=== PATIENT | male | born 1990 | race Hispanic/Latino ===

== ENCOUNTER 2017-11-04 21:37 | Emergency (ER) | payer SELFPAY ==
[2017-11-05] MEDS ORDERED: OCTYL 2-CYANOACRYLATE 1 EACH TP ONE (00:01)
== END 2017-11-05 00:53 | disposition home or self-care (01) ==
LOC: EDH 21:37
DX: S02.2XXA Fracture of nasal bones, initial encounter for closed fracture (principal); S01.21XA Laceration without foreign body of nose, initial encounter; I10 Essential (primary) hypertension; W10.8XXA Fall (on) (from) other stairs and steps, initial encounter; Y93.89 Activity, other specified; Y92.89 Other specified places as the place of occurrence of the external cause; Y99.8 Other external cause status
CPT/HCPCS: 12011; 70450; 70486; 72040

== ENCOUNTER 2019-01-13 21:24 | Inpatient (IN) | payer OTHER ==
[~2019-01-13] VITALS: Ht 177.8 cm; Wt 112.5 kg
[2019-01-13 21:51] LABS: APPEARANCE,URINE Clear (CLEAR); BILIRUBIN,URINE Large (NEGATIVE); COLOR,URINE Dark Yellow (YELLOW); GLUCOSE, URINE (UA) Negative (NEGATIVE); KETONES,URINE Negative (NEGATIVE); LEUKOCYTE ESTERASE ,URINE Trace (NEGATIVE); NITRATE,URINE Negative (NEGATIVE); OCCULT BLOOD,URINE Negative (NEGATIVE); PH,URINE 6.5 (5.0-8.0); PROTEIN,URINE Negative (NEGATIVE)
[2019-01-13 21:58] LABS: AMPHET/METH SCREEN,URINE NEGATIVE (NEGATIVE); BARBITURATE SCREEN, URINE NEGATIVE (NEGATIVE); BENZODIAZEPINES SCREEN,URINE NEGATIVE (NEGATIVE); CANNABINOID SCREEN,URINE NEGATIVE (NEGATIVE); COCAINE SCREEN,URINE NEGATIVE (NEGATIVE); OPIATE SCREEN,URINE NEGATIVE (NEGATIVE); PHENCYCLIDINE SCREEN,URINE NEGATIVE (NEGATIVE)
[2019-01-13 22:02] LABS: BASOPHILS % (AUTO) 1.5 % (0.0-5.0); HEMATOCRIT 36.3 % (42-54); LYMPHOCYTES % (AUTO) 33.1 % (21.0-51.0); MEAN CORPUSCULAR HGB CONC 35.6 g/dL (32.0-36.0); MEAN CORPUSCULAR VOLUME 98.5 fL (79-99); MONOCYTES % (AUTO) 8.7 % (3.0-13.0); NEUTROPHILS % (AUTO) 55.7 % (40.0-77.0); NUCLEATED RED BLOOD CELLS 0.1 % (0.0-0.19); PLATELET COUNT (AUTO) 308 K/uL (130-400); RED BLOOD CELL COUNT(AUTO) 3.69 MIL/uL (4.50-6.20); RED CELL DISTRIBUTION WIDTH 16.5 % (11.0-15.5); WHITE BLOOD COUNT (AUTO) 9.7 K/uL (4.8-10.8)
[2019-01-13 22:02] LABS: BACTERIA,URINE Few /HPF (None Seen); COARSE GRANULAR CASTS,URINE 0-2 /LPF (None Seen); HYALINE CASTS, URINE 0-1 /LPF (0-1 /LPF); MUCUS,URINE Few LPF (None Seen)
[2019-01-13 22:03] LABS: RBC,URINE 0-1 /HPF (0-1)
[2019-01-13 22:04] LABS: OTHER CASTS, URINE WBC CASTS 1+ /LPF (None Seen)
[2019-01-13 22:16] LABS: CARBON DIOXIDE 29 mmol/L (21-32); CHLORIDE 100 mmol/L (101-111); CREATININE 0.6 mg/dL (0.5-1.5); GLOMERULAR FILTR. RATE CALC 169 mL/min (>60); GLUCOSE,RANDOM 154 mg/dL (70-105); POTASSIUM 3.4 mmol/L (3.5-5.1); SODIUM SERUM 136 mmol/L (136-145); UREA NITROGEN, BLOOD 4 mg/dL (7-18)
[2019-01-13 22:21] LABS: INR 1.1 (0.85-1.15); PARTIAL THROMBOPLASTIN TIME 28.9 SEC (26.3-35.5); PROTHROMBIN TIME 11.5 SEC (9.6-11.6)
[2019-01-13 22:29] LABS: ALANINE AMINOTRANSFERASE 99 U/L (12-78); ALBUMIN 2.9 g/dL (3.5-5.0); ASPARTATE AMINOTRANSFERASE 170 U/L (10-37); LIPASE 267 U/L (114-286); TOTAL PROTEIN, SERUM 7.2 g/dL (6.0-8.3)
[2019-01-13 22:35] LABS: BILIRUBIN,DIRECT 13.6 mg/dL (0.0-0.3); BILIRUBIN,TOTAL 16.8 mg/dL (0.2-1.0)
[2019-01-13 22:37] LABS: ALCOHOL, BLOOD < 3 mg/dL (0-10)
[2019-01-13] MEDS ORDERED: ONDANSETRON HCL 4 MG/2 ML VIAL IV PRN (23:15)
[2019-01-13] MEDS ORDERED: DIAZEPAM 5 MG TABLET PO PRN (23:15)
[2019-01-13] MEDS ORDERED: ACETAMINOPHEN 325 MG TAB PO PRN ×2 (23:15)
[2019-01-14 00:02] VITALS: BP 159/100
--- NOTE | 2019-01-14 00:30 | NUR ---
ADMISSION ASSESSMENT: Received pt from ER via wheelchair. Pt alert and oriented x 4, c/o of mild headache. Pt is jaundice. Pt and mother oriented to bed controls and room. Patent IV to right ac with NS infusing. Educated pt on alcohol cessation and liver cirrhosis. Will continue to monitor
[2019-01-14 03:58] VITALS: BP 131/71
[2019-01-14 08:00] VITALS: BP_SYST 142; BP_SYST 99; BP_DIAS 55; BP_DIAS 80
[2019-01-14] MEDS ORDERED: ENOXAPARIN SODIUM 30 MG/0.3 ML SQ SCH (09:00)
[2019-01-14] MEDS: THIAMINE HCL 100 MG TABLET PO SCH (09:50)
[2019-01-14] MEDS: FAMOTIDINE/PF 20 MG/2 ML VIAL IV SCH ×2 (09:51→20:55)
[2019-01-14] MEDS: SODIUM CHLORIDE 0.9% 1000ML 1,000 ML IV SCH ×2 (09:52→21:07)
--- NOTE | 2019-01-14 10:00 | NUR ---
DR. BEE AWARE OF CONSULT, ORDERS ENTERED. STATES MUCOMYST IS FOR PREVENTATIVE MEASURE FOR LIVER FAILURE. ASKED IF OKAY TO STOP LOVENOX SINCE PATIENT REPORTED LIGHT BLOOD IN STOOLS STATES OKAY TO STOP LOVENOX.
[2019-01-14 11:57] VITALS: BP 139/80
--- NOTE | 2019-01-14 12:11 | NUR ---
DCP CM met with pt discussed dc plans. Pt is independent lives at home with mother. Denies any equipments/services. Pt feels safe to go back home, still drives, mother able to assist with transportation and needs. Pt currently does not follow a pcp, self pay, given [facility], [facility] assisting. DC plan to home once stable. CM to cont to follow up. Addendum: 01/14/19 at 1212 by TATY CANDELARIO LVN CM Amended: Links added.
[2019-01-14] MEDS ORDERED: PHARMACY COMMUNICATION MISC SCH (12:15)
[2019-01-14] MEDS: LACTULOSE 20 GM/30 ML UDCUP PO SCH ×2 (14:46→20:55)
[2019-01-14 16:00] VITALS: BP 156/93
--- NOTE | 2019-01-14 16:00 | NUR ---
ASKED DR. LOMAS IF WANTS TO START PT ON WITHDRAWAL PROTOCOL STATES NO NEEDS SINCE PATIENT IS NOT SHOWING ANY SIGNS NOR SYMPTOMS.
[2019-01-14 20:10] VITALS: BP 149/83
[2019-01-14] MEDS ORDERED: WATER IV SCH ×8 (21:00→22:00)
[2019-01-14] MEDS ORDERED: DEXTROSE 5% IV SCH ×8 (21:00→22:00)
[2019-01-14] MEDS ORDERED: ACETYLCYSTEINE IV SCH ×8 (21:00→22:00)
[2019-01-15] VITALS (7 sets, daily range): BP systolic 124–153; BP diastolic 74–99
--- NOTE | 2019-01-15 00:25 | NUR ---
NOTE PATIENT REPORTS HE HAD AN EPISODE OF NAUSEA AND FEELING DIZZY EARLIER, BUT NOW NAUSEA IS RELIEVED AND NO DIZZINESS.
[2019-01-15] MEDS ORDERED: WATER IV SCH (02:00)
[2019-01-15] MEDS ORDERED: DEXTROSE 5% IV SCH (02:00)
[2019-01-15] MEDS ORDERED: ACETYLCYSTEINE IV SCH (02:00)
[2019-01-15] MEDS: LACTULOSE 20 GM/30 ML UDCUP PO SCH ×3 (03:25→21:25)
[2019-01-15] MEDS: SODIUM CHLORIDE 0.9% 1000ML 1,000 ML IV SCH ×2 (03:25→15:10)
--- NOTE | 2019-01-15 03:44 | NUR ---
NOTE PATIENT REPORTS HE HAS NOT HAD ANY MORE NAUSEA EPISODES. DOES SAY THAT HE HAS BEEN HAVING SOME ITCHING SINCE 2 DAYS PRIOR AND IT HAS BECOME MORE FREQUENT THAT HE HAS TO SCRATCH ALL OVER BODY. CONTACTED Jhon WILHELM TO NOTIFY AND OBTAINED ORDER FOR BENADRYL PRN.
[2019-01-15 04:30] LABS: MEAN CORPUSCULAR HGB CONC 34.3 g/dL (32.0-36.0); RED CELL DISTRIBUTION WIDTH 16.9 % (11.0-15.5)
[2019-01-15 04:49] LABS: ALBUMIN 2.5 g/dL (3.5-5.0); CREATININE 0.7 mg/dL (0.5-1.5); POTASSIUM 3.6 mmol/L (3.5-5.1)
[2019-01-15 04:57] LABS: BASOPHILS % (AUTO) 1.3 % (0.0-5.0); EOSINOPHILS % (AUTO) 1.8 % (0.0-8.0); HEMATOCRIT 38.2 % (42-54); LYMPHOCYTES % (AUTO) 6.8 % (21.0-51.0); MEAN CORPUSCULAR HEMOGLOBIN 33.7 pg (27.0-33.0); MEAN CORPUSCULAR VOLUME 98.2 fL (79-99); NEUTROPHILS % (AUTO) 75.1 % (40.0-77.0); PLATELET COUNT (AUTO) 373 K/uL (130-400); RED BLOOD CELL COUNT(AUTO) 3.88 MIL/uL (4.50-6.20)
[2019-01-15 05:14] LABS: BILIRUBIN,TOTAL 16.3 mg/dL (0.2-1.0)
[2019-01-15 06:01] LABS: ALBUMIN 2.5 g/dL (3.5-5.0); TOTAL PROTEIN, SERUM 7.2 g/dL (6.0-8.3)
[2019-01-15 06:03] LABS: BILIRUBIN,DIRECT 12.2 mg/dL (0.0-0.3); BILIRUBIN,TOTAL 16.3 mg/dL (0.2-1.0)
[2019-01-15] MEDS: DIPHENHYDRAMINE HCL 25 MG CAPSULE PO PRN ×2 (07:39→21:31)
[2019-01-15] MEDS ORDERED: LORAZEPAM 0.5 MG TABLET PO PRN (09:00)
[2019-01-15] MEDS: THIAMINE HCL 100 MG/ML 2ML VIAL IM SCH (09:47)
[2019-01-15] MEDS: FOLIC ACID 1 MG TABLET PO SCH (09:47)
[2019-01-15] MEDS: MULTIVITAMIN TABLET PO SCH (09:47)
[2019-01-15] MEDS: THIAMINE HCL 100 MG TABLET PO SCH (09:47)
[2019-01-15] MEDS: FAMOTIDINE/PF 20 MG/2 ML VIAL IV SCH ×2 (09:48→21:25)
--- NOTE | 2019-01-15 10:00 | NUR ---
DR. Maribel EBE MD HERE TO SEE PATIENT. TOLD ME THAT IF PRIMARY MD WANTS TO CONTINUE TO MONITOR PATIENT TODAY AND POSSIBLE DISCHARGE TOMORROW (01/16/19) AND IT IS OKAY FROM GI STANDPOINT TO DISCONTINUE MUCOMYST IV INFUSION TOMORROW (01/16/19) WELL DISCHARGE TOMORROW. STATES "IT IS JUST GOING TO TAKE SOME TIME FOR PATIENTS CONDITION TO IMPROVE."
[2019-01-15] MEDS: WATER IV SCH (21:26)
[2019-01-15] MEDS: ACETYLCYSTEINE IV SCH (21:26)
[2019-01-15] MEDS: DEXTROSE 5% IV SCH (21:26)
[2019-01-16 04:00] VITALS: BP 134/78
[2019-01-16 04:54] LABS: HEMATOCRIT 36.2 % (42-54); MEAN CORPUSCULAR HEMOGLOBIN 34.6 pg (27.0-33.0); MEAN CORPUSCULAR HGB CONC 34.9 g/dL (32.0-36.0); MEAN CORPUSCULAR VOLUME 99.1 fL (79-99); NUCLEATED RED BLOOD CELLS 0.1 % (0.0-0.19); PLATELET COUNT (AUTO) 325 K/uL (130-400); RED BLOOD CELL COUNT(AUTO) 3.66 MIL/uL (4.50-6.20); RED CELL DISTRIBUTION WIDTH 17.2 % (11.0-15.5); WHITE BLOOD COUNT (AUTO) 12.1 K/uL (4.8-10.8)
[2019-01-16] MEDS: LACTULOSE 20 GM/30 ML UDCUP PO SCH ×3 (05:10→20:49)
[2019-01-16] MEDS: SODIUM CHLORIDE 0.9% 1000ML 1,000 ML IV SCH ×2 (05:10→11:09)
[2019-01-16 05:15] LABS: ALBUMIN 2.3 g/dL (3.5-5.0); TOTAL PROTEIN, SERUM 6.6 g/dL (6.0-8.3)
[2019-01-16 05:17] LABS: BILIRUBIN,DIRECT 12.8 mg/dL (0.0-0.3); BILIRUBIN,TOTAL 16.3 mg/dL (0.2-1.0)
[2019-01-16 08:02] VITALS: BP 128/73
[2019-01-16] MEDS: THIAMINE HCL 100 MG/ML 2ML VIAL IM SCH (09:48)
[2019-01-16] MEDS: FAMOTIDINE/PF 20 MG/2 ML VIAL IV SCH ×2 (09:48→20:49)
[2019-01-16] MEDS: THIAMINE HCL 100 MG TABLET PO SCH (09:48)
[2019-01-16] MEDS: MULTIVITAMIN TABLET PO SCH (09:48)
[2019-01-16] MEDS: FOLIC ACID 1 MG TABLET PO SCH (09:48)
--- NOTE | 2019-01-16 11:15 | NUR ---
DR. DOUGLAS JACOB MD HERE TO SEE PATIENT. INFORMED MD OF DR. ANA LUISA BEE'S RECOMMENDATIONS. MD REPLIED WE WILL MONITOR PATIENT FOR ONE MORE DAY AND POSSIBLE DISCHARGE TOMORROW 01/17/19. MD SPOKE TO PATIENT AND INFORMED HIM OF PLAN OF CARE.
[2019-01-16 11:57] VITALS: BP 128/72
[2019-01-16 16:00] VITALS: BP 152/83
[2019-01-16 19:00] VITALS: BP 133/84
[2019-01-16] MEDS ORDERED: ACETYLCYSTEINE IV SCH (21:00)
[2019-01-16] MEDS ORDERED: WATER IV SCH (21:00)
[2019-01-16] MEDS ORDERED: DEXTROSE 5% IV SCH (21:00)
[2019-01-16] MEDS: ACETYLCYSTEINE IV SCH (21:08)
[2019-01-16] MEDS: DEXTROSE 5% IV SCH (21:08)
[2019-01-16] MEDS: WATER IV SCH (21:08)
[2019-01-16 23:11] VITALS: BP 108/59
[2019-01-17] MEDS: SODIUM CHLORIDE 0.9% 1000ML 1,000 ML IV SCH ×2 (01:24→11:36)
[2019-01-17] MEDS: DIPHENHYDRAMINE HCL 25 MG CAPSULE PO PRN (01:24)
[2019-01-17 03:42] VITALS: BP 139/74
[2019-01-17 04:30] LABS: ALBUMIN 2.2 g/dL (3.5-5.0); TOTAL PROTEIN, SERUM 6.5 g/dL (6.0-8.3)
[2019-01-17 04:35] LABS: BILIRUBIN,DIRECT 13.5 mg/dL (0.0-0.3); BILIRUBIN,TOTAL 16.9 mg/dL (0.2-1.0)
[2019-01-17 08:00] VITALS: BP 131/70
[2019-01-17] MEDS: MULTIVITAMIN TABLET PO SCH (10:02)
[2019-01-17] MEDS: FOLIC ACID 1 MG TABLET PO SCH (10:02)
[2019-01-17] MEDS: THIAMINE HCL 100 MG TABLET PO SCH (10:02)
[2019-01-17] MEDS: FAMOTIDINE/PF 20 MG/2 ML VIAL IV SCH (10:03)
[2019-01-17] MEDS: THIAMINE HCL 100 MG/ML 2ML VIAL IM SCH (10:03)
[2019-01-17 11:00] VITALS: BP 141/82
[2019-01-17] MEDS: LACTULOSE 20 GM/30 ML UDCUP PO SCH (12:15)
--- NOTE | 2019-01-17 17:00 | NUR ---
DISCHARGED NOW USING TEACH BACK, DC INST. GIVEN WITH FOLLOW UP APPT. TO SEE DR. DESHPANDE. NO RX. GIVEN, PLANS TO GO TO [facility] FOR FOR FOLLOW UP CARE ALSO. SALINE LOCK REMOVED AND FAMILY MEMBER HERE TO PROVIDE TRANSPORTATION.
[2019-01-18 05:13] LABS: HEPATITIS A ANTIBODY IGM Negative (Negative); HEPATITIS B CORE IGM Negative (Negative); HEPATITIS Bs ANTIGEN SCREEN P Negative (Negative)
== END 2019-01-17 17:10 | disposition home or self-care (01) | DRG 434 ==
LOC: EDH 21:24 → EDHIP 21:25 → 4CH 01-14 00:02 → 4BH 01-16 17:25
PROVIDERS: ADMIT Internal Medicine; ATTEND Internal Medicine
DX: K70.10 Alcoholic hepatitis without ascites (principal); L29.9 Pruritus, unspecified; K71.9 Toxic liver disease, unspecified; F10.10 Alcohol abuse, uncomplicated; M54.9 Dorsalgia, unspecified; E80.6 Other disorders of bilirubin metabolism; K72.90 Hepatic failure, unspecified without coma; T50.995A Adverse effect of other drugs, medicaments and biological substances, initial encounter; I10 Essential (primary) hypertension; Z79.899 Other long term (current) drug therapy; Y92.89 Other specified places as the place of occurrence of the external cause
CPT/HCPCS: 36415; 76705; 80048; 80053; 80074; 80076; 80305; 81001; 82140; 82150; 83690; 85025; 85027; 85610; 85730; G0378; G0480; J0132; J1650; J3411; J3490; J7030; J7060; Q0163

== ENCOUNTER 2019-02-10 19:47 | Inpatient (IN) | payer OTHER ==
[~2019-02-10] VITALS: Ht 177.8 cm; Wt 109.5 kg
[2019-02-10 20:27] LABS: BASOPHILS % (AUTO) 0.4 % (0.0-5.0); EOSINOPHILS % (AUTO) 1.6 % (0.0-8.0); HEMATOCRIT 36.7 % (42-54); LYMPHOCYTES % (AUTO) 7.4 % (21.0-51.0); MEAN CORPUSCULAR HEMOGLOBIN 34.4 pg (27.0-33.0); MEAN CORPUSCULAR HGB CONC 33.5 g/dL (32.0-36.0); MEAN CORPUSCULAR VOLUME 102.7 fL (79-99); MONOCYTES % (AUTO) 5.1 % (3.0-13.0); NEUTROPHILS % (AUTO) 85.5 % (40.0-77.0); PLATELET COUNT (AUTO) 422 K/uL (130-400); RED BLOOD CELL COUNT(AUTO) 3.57 MIL/uL (4.50-6.20); RED CELL DISTRIBUTION WIDTH 19.2 % (11.0-15.5)
[2019-02-10 20:38] LABS: CREATININE 0.7 mg/dL (0.5-1.5); INR 2.41 (0.85-1.15); PARTIAL THROMBOPLASTIN TIME 43.9 SEC (26.3-35.5); POTASSIUM 3.9 mmol/L (3.5-5.1); PROTHROMBIN TIME 24.9 SEC (9.6-11.6)
[2019-02-10 20:51] LABS: ALBUMIN 1.3 g/dL (3.5-5.0); TOTAL PROTEIN, SERUM 6.3 g/dL (6.0-8.3)
[2019-02-10] MEDS ORDERED: IOHEXOL-350 75 ML VIAL IV ONE (20:51)
[2019-02-10 20:55] LABS: WHITE BLOOD COUNT (AUTO) 32.3 K/uL (4.8-10.8)
[2019-02-10 20:59] LABS: BILIRUBIN,TOTAL 17.9 mg/dL (0.2-1.0)
[2019-02-10 21:21] LABS: BAND NEUTROPHILS % (MANUAL) 8 % (0-2); LYMPHOCYTES % (MANUAL) 2 % (22-44); MONOCYTES % (MANUAL) 7 % (2-9); SEGMENTED NEUTROPHILS % 83 % (40-70)
[2019-02-10 21:22] LABS: MAN.DIFF COMMENT-IMPRESSION MANUAL DIFFERENTIAL; PLATELET MORPHOLOGY COMMENT SLIGHT INC
[2019-02-10] MEDS ORDERED: MORPHINE SULFATE 4 MG/1ML SYG ONE (22:11)
[2019-02-10] MEDS ORDERED: ONDANSETRON HCL 4 MG/2 ML VIAL ONE (22:11)
[2019-02-10] MEDS ORDERED: ZOSYN 3.375GM+NS 50ML 50 ML IV ONE (22:11)
[2019-02-10] MEDS ORDERED: ACETAMINOPHEN 325 MG TAB PO PRN (22:30)
[2019-02-10] MEDS ORDERED: MORPHINE SULFATE 2 MG/ML 1ML SYG IV PRN (22:30)
[2019-02-10] MEDS ORDERED: ONDANSETRON HCL 4 MG/2 ML VIAL IV PRN (22:30)
[2019-02-10] MEDS ORDERED: PHARMACY COMMUNICATION MISC SCH (23:45)
[2019-02-11 00:16] LABS: ALCOHOL, BLOOD < 3 mg/dL (0-10)
[2019-02-11 00:30] LABS: ACETAMINOPHEN < 1 mcg/mL (10-29)
[2019-02-11 01:00] VITALS: BP 133/74
--- NOTE | 2019-02-11 01:10 | NUR ---
ADMIT PATIENT ADMITTED TO ROOM 431 FROM ED. PATIENT AAOX3 NO NAUSEA OR CHEST PAIN AT THIS TIME JUST ABD PAIN. PATIENT ORIENTED TO ROOM AND HOSPITAL AND IS AWARE OF PROCEDURE IN AM OF PARACENTESIS.
[2019-02-11] MEDS: SODIUM CHLORIDE 0.9% 1000ML 1,000 ML IV SCH ×3 (01:30→13:28)
[2019-02-11 03:15] VITALS: BP 111/51
[2019-02-11] MEDS: ZOSYN 3.375GM+NS 50ML 50 ML IV SCH ×3 (05:06→21:48)
[2019-02-11 05:27] LABS: BASOPHILS % (AUTO) 0.6 % (0.0-5.0); EOSINOPHILS % (AUTO) 1.9 % (0.0-8.0); HEMATOCRIT 32.9 % (42-54); LYMPHOCYTES % (AUTO) 6.5 % (21.0-51.0); MEAN CORPUSCULAR HEMOGLOBIN 35.7 pg (27.0-33.0); MEAN CORPUSCULAR HGB CONC 34.5 g/dL (32.0-36.0); MEAN CORPUSCULAR VOLUME 103.4 fL (79-99); MONOCYTES % (AUTO) 6.4 % (3.0-13.0); NEUTROPHILS % (AUTO) 84.6 % (40.0-77.0); PLATELET COUNT (AUTO) 315 K/uL (130-400); RED BLOOD CELL COUNT(AUTO) 3.19 MIL/uL (4.50-6.20); RED CELL DISTRIBUTION WIDTH 18.8 % (11.0-15.5); WHITE BLOOD COUNT (AUTO) 23.4 K/uL (4.8-10.8)
[2019-02-11 05:46] LABS: ALBUMIN 1.2 g/dL (3.5-5.0); BILIRUBIN,TOTAL 14.9 mg/dL (0.2-1.0); CREATININE 0.7 mg/dL (0.5-1.5); POTASSIUM 3.9 mmol/L (3.5-5.1); TOTAL PROTEIN, SERUM 5.5 g/dL (6.0-8.3)
[2019-02-11 07:42] VITALS: BP 113/61
[2019-02-11] MEDS ORDERED: LACTULOSE 20 GM/30 ML UDCUP ONE (08:07)
[2019-02-11] MEDS: FAMOTIDINE/PF 20 MG/2 ML VIAL IV SCH ×2 (08:08→21:47)
[2019-02-11] MEDS: LACTULOSE 20 GM/30 ML UDCUP PO SCH ×2 (08:13→21:47)
[2019-02-11 11:26] VITALS: BP 116/59
--- NOTE | 2019-02-11 14:30 | NUR ---
Pt returned from IR. Abdominal paracentesis had been planned, but per verbal report of IR nurse Elliot, US done in that department showed no fluid; no procedure was done. Pt in stable condition, reconnected to IV fluids and antibiotics. Call light and bedside table in easy reach.
--- NOTE | 2019-02-11 14:40 | NUR ---
PROCEDURE PATIENT SCHEDULED FOR U/S GD PARACENTESIS. IMAGES TAKEN AND REVIEWED BY DR Chaparrita CARBONE. SCANT AMOUNT OF FLUID SEEN AND PROCEDURE CANCELLED BY DR Chaparrita CARBONE . REPORT GIVEN TO Mary Kay PADRON RN AND PATIENT TRANSPORTED TO [address] [place] [address] W/C
[2019-02-11 16:15] VITALS: BP 127/69
[2019-02-11 17:10] LABS: AMPHET/METH SCREEN,URINE NEGATIVE (NEGATIVE); BARBITURATE SCREEN, URINE NEGATIVE (NEGATIVE); BENZODIAZEPINES SCREEN,URINE NEGATIVE (NEGATIVE); CANNABINOID SCREEN,URINE NEGATIVE (NEGATIVE); COCAINE SCREEN,URINE NEGATIVE (NEGATIVE); OPIATE SCREEN,URINE NEGATIVE (NEGATIVE); PHENCYCLIDINE SCREEN,URINE NEGATIVE (NEGATIVE)
[2019-02-11 20:00] VITALS: BP 116/61
[2019-02-12 00:04] VITALS: BP 113/70
[2019-02-12 03:51] VITALS: BP 132/77
[2019-02-12 05:05] LABS: BASOPHILS % (AUTO) 1.3 % (0.0-5.0); EOSINOPHILS % (AUTO) 1.8 % (0.0-8.0); HEMATOCRIT 32.5 % (42-54); LYMPHOCYTES % (AUTO) 6.9 % (21.0-51.0); MEAN CORPUSCULAR HEMOGLOBIN 35.7 pg (27.0-33.0); MEAN CORPUSCULAR HGB CONC 34.9 g/dL (32.0-36.0); MEAN CORPUSCULAR VOLUME 102.6 fL (79-99); MONOCYTES % (AUTO) 5.8 % (3.0-13.0); NEUTROPHILS % (AUTO) 84.2 % (40.0-77.0); PLATELET COUNT (AUTO) 319 K/uL (130-400); RED BLOOD CELL COUNT(AUTO) 3.17 MIL/uL (4.50-6.20); RED CELL DISTRIBUTION WIDTH 18.8 % (11.0-15.5); WHITE BLOOD COUNT (AUTO) 21.3 K/uL (4.8-10.8)
[2019-02-12 05:16] LABS: CREATININE 0.8 mg/dL (0.5-1.5); POTASSIUM 3.7 mmol/L (3.5-5.1)
[2019-02-12 05:19] LABS: INR 2.36 (0.85-1.15); PARTIAL THROMBOPLASTIN TIME 49.8 SEC (26.3-35.5); PROTHROMBIN TIME 24.4 SEC (9.6-11.6)
[2019-02-12] MEDS: ZOSYN 3.375GM+NS 50ML 50 ML IV SCH (05:30)
[2019-02-12 07:05] VITALS: BP 117/67
[2019-02-12] MEDS ORDERED: VITAMIN E 400 UNIT CAPSULE PO SCH (09:00)
--- NOTE | 2019-02-12 09:06 | NUR ---
cm note met with rober and state resides at home with spouse, independent with adls and self care. no dme. has already spoken to [facility] for possible county assist. pt see UZAIR nolan as OP. states no dc needs.dc plan is back to home. Addendum: 02/12/19 at 0909 by CHINTAN VALLE CM Amended: Links added.
[2019-02-12] MEDS: FAMOTIDINE/PF 20 MG/2 ML VIAL IV SCH (09:13)
[2019-02-12] MEDS: LACTULOSE 20 GM/30 ML UDCUP PO SCH (09:14)
[2019-02-12] MEDS ORDERED: LACT10SO9 PO (11:09)
[2019-02-12 11:12] VITALS: BP 125/69
--- NOTE | 2019-02-12 13:00 | NUR ---
Discharge instructions given to patient in [place] on new prescription and follow up appointment, family present in the room. Stated that he already has an appointment with Dr Maribel De Guzman for and that he will try to arrange for a crutch maker follow up. Skin color remains jaundice but free of pain.
== END 2019-02-12 13:35 | disposition home or self-care (01) | DRG 434 ==
LOC: EDH 19:47 → EDHIP 19:48 → 4AH 02-11 00:11
PROVIDERS: ADMIT Internal Medicine; ATTEND Internal Medicine
DX: K70.31 Alcoholic cirrhosis of liver with ascites (principal); D72.829 Elevated white blood cell count, unspecified; F10.10 Alcohol abuse, uncomplicated; I10 Essential (primary) hypertension; Y90.0 Blood alcohol level of less than 20 mg/100 ml; Z83.3 Family history of diabetes mellitus; Z83.2 Family history of diseases of the blood and blood-forming organs and certain disorders involving the immune mechanism; Z82.49 Family history of ischemic heart disease and other diseases of the circulatory system
CPT/HCPCS: 36415; 74177; 76705; 80048; 80053; 80305; 82140; 82248; 82270; 83605; 83690; 85025; 85610; 85730; 86900; 86901; 87040; G0378; G0480; J2270; J2405; J2543; J3490; Q9967

== ENCOUNTER 2019-03-01 08:36 | Inpatient (IN) | payer OTHER ==
[~2019-03-01] VITALS: Ht 177.8 cm; Wt 110.1 kg
[~2019-03-01 08:36] MED LIST: LACT10SO9 PO
[2019-03-01 09:10] LABS: CREATININE 0.8 mg/dL (0.5-1.5); POTASSIUM 3.5 mmol/L (3.5-5.1)
[2019-03-01 09:12] LABS: BASOPHILS % (AUTO) 0.6 % (0.0-5.0); LYMPHOCYTES % (AUTO) 13.3 % (21.0-51.0); MEAN CORPUSCULAR HEMOGLOBIN 35.5 pg (27.0-33.0); MEAN CORPUSCULAR HGB CONC 33.6 g/dL (32.0-36.0); MEAN CORPUSCULAR VOLUME 105.7 fL (79-99); MONOCYTES % (AUTO) 5.7 % (3.0-13.0); NEUTROPHILS % (AUTO) 78.4 % (40.0-77.0); PLATELET COUNT (AUTO) 391 K/uL (130-400); RED BLOOD CELL COUNT(AUTO) 2.46 MIL/uL (4.50-6.20); RED CELL DISTRIBUTION WIDTH 19.5 % (11.0-15.5)
[2019-03-01 09:15] LABS: APPEARANCE,URINE SL CLOUDY (CLEAR); BILIRUBIN,URINE LARGE (NEGATIVE); COLOR,URINE BROWN (YELLOW); GLUCOSE, URINE (UA) 100 mg/dL (NEGATIVE); KETONES,URINE 5 mg/dL (NEGATIVE); LEUKOCYTE ESTERASE ,URINE TRACE (NEGATIVE); NITRATE,URINE NEGATIVE (NEGATIVE); OCCULT BLOOD,URINE NEGATIVE (NEGATIVE); PH,URINE 6.5 (5.0-8.0); PROTEIN,URINE 100 mg/dL (NEGATIVE)
[2019-03-01 09:18] LABS: ALBUMIN 1.1 g/dL (3.5-5.0); BILIRUBIN,TOTAL 13.3 mg/dL (0.2-1.0); INR 2.35 (0.85-1.15); PARTIAL THROMBOPLASTIN TIME 46.2 SEC (26.3-35.5); PROTHROMBIN TIME 24.3 SEC (9.6-11.6); TOTAL PROTEIN, SERUM 6.2 g/dL (6.0-8.3)
[2019-03-01 09:20] LABS: BILIRUBIN,DIRECT 10.7 mg/dL (0.0-0.3)
[2019-03-01 09:24] LABS: WHITE BLOOD COUNT (AUTO) 32.9 K/uL (4.8-10.8)
[2019-03-01] MEDS ORDERED: FUROSEMIDE 10 MG/ML 2ML VIAL ONE (09:27)
[2019-03-01] MEDS ORDERED: FUROSEMIDE 10 MG/ML 4ML VIAL ONE (09:28)
[2019-03-01 09:31] LABS: RBC,URINE 0-1 /HPF (0-1)
[2019-03-01 09:32] LABS: BACTERIA,URINE Moderate /HPF (None Seen); MUCUS,URINE Moderate LPF (None Seen); SQUAMOUS EPITHELIAL CELL,UR Few /HPF (0-2)
[2019-03-01 09:41] LABS: BAND NEUTROPHILS % (MANUAL) 1 % (0-2); BASOPHILS % (MANUAL) 1 % (0-2); EOSINOPHILS % (MANUAL) 1 % (1-6); LYMPHOCYTES % (MANUAL) 7 % (22-44); MONOCYTES % (MANUAL) 2 % (2-9); SEGMENTED NEUTROPHILS % 88 % (40-70)
[2019-03-01 09:42] LABS: MAN.DIFF COMMENT-IMPRESSION MANUAL DIFFERENTIAL; PLATELET MORPHOLOGY COMMENT ADEQUATE
[2019-03-01] MEDS ORDERED: ONDANSETRON HCL 4 MG/2 ML VIAL IV PRN (12:00)
[2019-03-01 12:50] VITALS: BP 142/79
--- NOTE | 2019-03-01 14:53 | NUR ---
DR. DONNIE RODRIGUEZ
--- NOTE | 2019-03-01 15:16 | NUR ---
PROCEDURE PATIENT SCHEDULED FOR U/S GD PARACENTESIS. IMAGES TAKEN AND REVIEWED BY DR Star MASON. MINIMAL FLUID SEEN WITH HIGH RISK OF PERFORATION OR LIVER PUNCTURE. PROCEDURE CANCELLED. PROCEDURE OUTCOME REPORTED TO Robi ROCK RN AND PATIENT TRANSPORTED TO [facility] VIA W/C AT 1515.
--- NOTE | 2019-03-01 15:30 | NUR ---
DR. JERAMY RODRIGUEZ
--- NOTE | 2019-03-01 16:30 | NUR ---
INITIAL MET W PATIENT- AAOX3, JAUNDICE, WEAK,HX LIVER DISEASE;LIVES W MOM, UNINSURED, [facility] DISCUSS[facility]; PT STATES ON THE WAITING LIST, MISISNG HIS APPT BECAUSE HE WAS IN HOSPITAL. DCP TO HOME. CM TO FOLLOW Addendum: 03/02/19 at 1909 by MARIETTA REYES RN CM Amended: Links added.
--- NOTE | 2019-03-01 17:23 | NUR ---
MOISES AMEZCUA AWARE OF GI BLEED
[2019-03-01] MEDS ORDERED: PEG 3350/NA SULF,BICARB,CL/KCL 4000 ML SOLN PO SCH (17:30)
--- NOTE | 2019-03-01 19:05 | NUR ---
FFP CHECKED FIRST UNIT OF FFP WITH OUTGOING NURSE THEN TRANSFUSION STARTED. V/S MONITORED, STABLE. REPORT RECEIVED AT BEDSIDE.
[2019-03-01 19:30] VITALS: BP 144/72
--- NOTE | 2019-03-01 19:40 | NUR ---
COMPLETED FIRST UNIT OF FFP COMPLETED WITHOUT ANY UNTOWARD S/SX. V/S MONITORED, STABLE. ENCOURAGED TO DRINK GOLYTELY AND TO FINISH BY MIDNIGHT. INSTRUCTED TO BE NPO POST MIDNIGHT. PT VERBALIZES UNDERSTANDING.
[2019-03-01] MEDS: FAMOTIDINE/PF 20 MG/2 ML VIAL IV SCH (20:59)
[2019-03-01] MEDS ORDERED: PANTOPRAZOLE 40 MG/VIAL IVP SCH (21:00)
[2019-03-01 21:44] VITALS: BP 123/67
--- NOTE | 2019-03-01 21:50 | NUR ---
SECOND SECOND UNIT OF FFP CHECKED WITH NAVA CACERES. MONITORED V/S, STABLE. INSTRUCTED TO REPORT ANY UNTOWARD S/SX TO STAFF. WILL MONITOR CLOSELY.
--- NOTE | 2019-03-01 22:05 | NUR ---
MONITOR RE-ASSESS PT TOLERATING TRANSFUSION WELL. NO DISTRESS NOTED. V/S MONITORED, STABLE. WILL CONTINUE TO MONITOR.
--- NOTE | 2019-03-01 23:15 | NUR ---
BM INSPECTED PT'S STOOL. NOTED TO BE LOOSE, BURGUNDY IN COLOR WITH SEDIMENTS OF STOOLS. ENCOURAGED TO FINISH GOLYTELY BY MIDNIGHT.
--- NOTE | 2019-03-01 23:20 | NUR ---
COMPLETED SECOND UNIT OF FFP COMPLETED. NO UNTOWARD S/SX NOTED. NO DISTRESS NOTED. V/S MONITORED, STABLE. KEPT RESTED AND COMFORTABLE IN BED.
[2019-03-01] MEDS ORDERED: SODIUM CHLORIDE 0.9% 250 ML IV ONE (23:24)
--- NOTE | 2019-03-01 23:45 | NUR ---
THIRD CHECKED THIRD UNIT OF FFP WITH NAVA PARADA. TRANSFUSION STARTED. V/S MONITORED, STABLE. WILL MONITOR PT CLOSELY.
[2019-03-02] VITALS (12 sets, daily range): BP systolic 110–142; BP diastolic 47–78
--- NOTE | 2019-03-02 | NUR ---
RE-ASSESS PT TOLERATING TRANSFUSION WELL. NO DISTRESS NOTED. V/S MONITORED, STABLE. WILL CONTINUE TO MONITOR. GOLYTELY FINISHED. PLACED PT ON NPO FROM NOW.
--- NOTE | 2019-03-02 00:45 | NUR ---
COMPLETED COMPLETED TRANSFUSION OF 3RD UNIT FFP WITHOUT ANY UNTOWARD S/SX. NO DISTRESS NOTED. V/S MONITORED, STABLE. KEPT RESTED AND COMFORTABLE.
--- NOTE | 2019-03-02 01:20 | NUR ---
PRBC CHECKED PRBC UNIT WITH NAVA PARADA. STARTED TRANSFUSION. INSTRUCTED PT TO REPORT ANY UNTOWARD S/SX. WILL MONITOR CLOSELY
--- NOTE | 2019-03-02 01:35 | NUR ---
RE-ASSESS PT TOLERATING BLOOD TRANSFUSION WELL. V/S MONITORED, STABLE. KEPT RESTED AND COMFORTABLE IN BED. CALL LIGHT WITHIN REACH. WILL MONITOR PT.
--- NOTE | 2019-03-02 03:50 | NUR ---
COMPLETED PRBC INFUSION COMPLETED WITHOUT ANY UNTOWARD S/SX. NO DISTRESS NOTED. V/S MONITORED, STABLE. SALINE LOCKED PIV. PCP IN TO HELP PT TO SHOWER.
[2019-03-02 04:59] LABS: INR 2.07 (0.85-1.15); PARTIAL THROMBOPLASTIN TIME 43.3 SEC (26.3-35.5); PROTHROMBIN TIME 21.4 SEC (9.6-11.6)
[2019-03-02 05:03] LABS: HEMATOCRIT 22.6 % (42-54); MEAN CORPUSCULAR HGB CONC 34.7 g/dL (32.0-36.0); MEAN CORPUSCULAR VOLUME 103.9 fL (79-99); PLATELET COUNT (AUTO) 267 K/uL (130-400); RED BLOOD CELL COUNT(AUTO) 2.17 MIL/uL (4.50-6.20); RED CELL DISTRIBUTION WIDTH 19.7 % (11.0-15.5)
[2019-03-02 05:04] LABS: ALBUMIN 1.2 g/dL (3.5-5.0); CREATININE 0.8 mg/dL (0.5-1.5); TOTAL PROTEIN, SERUM 5.8 g/dL (6.0-8.3)
[2019-03-02 05:08] LABS: POTASSIUM 2.8 mmol/L (3.5-5.1)
--- NOTE | 2019-03-02 05:15 | NUR ---
LABS PT'S INR=2.07. CALLED LAB TO THAW FFP AND TO CALL HEAD FIELD HOCKEY COACH WHEN READY.
--- NOTE | 2019-03-02 06:10 | NUR ---
FFP CHECKED UNIT OF FFP WITH ALICIA HUSSEIN. V/S MONITORED, STABLE. STARTED TRANSFUSION. WILL MONITOR PT.
--- NOTE | 2019-03-02 06:30 | NUR ---
PT TOLERATING FFP TRANSFUSION. V/S MONITORED, STABLE. NO DISTRESS NOTED. OWEN FROM GI LAB CALLED AND MADE AWARE OF INR LEVEL=2.07, KCL=2.8 AND THAT FIRST UNIT OF FFP IS INFUSING. STILL INDEED OF KCL REPLACEMENT. STATED TO CALL DR DESHPANDE. DR DESHPANDE CALLED AND INFORMED OF ABNORMAL LABS. STATED WILL STILL DO PROCEDURE THIS AM. CALLED OWEN IN GI LAB AND MADE AWARE OF MD ORDER.
[2019-03-02] MEDS: POTASSIUM CHLORIDE 20MEQ/100ML 100 ML IV PRN ×4 (06:43→19:45)
[2019-03-02] MEDS: LIDOCAINE HCL-MPF 1% 2ML VIAL IVP PRN ×4 (06:43→19:44)
--- NOTE | 2019-03-02 06:45 | NUR ---
UZAIR WEAVER FROM GI LAB WHEELED PT DOWN FOR PROCEDURE.
[2019-03-02] MEDS ORDERED: PROPOFOL 10 MG/ML 20ML VIAL IV ONE (07:05)
[2019-03-02] MEDS ORDERED: LIDOCAINE HCL-MPF 2% 5ML VIAL ONE (07:05)
[2019-03-02] MEDS ORDERED: PHENYLEPHRINE HCL 10 MG/ML 1ML VIAL IV ONE (07:18)
--- NOTE | 2019-03-02 07:55 | NUR ---
REPORT OWEN FROM GI CALLED REPORT POST PROCEDURE. SALES SERVICE MANAGER WAS INFORMED THAT EGD AND COLONOSCOPY WERE DONE AND NO GI BLEEDING SEEN. DR DESHPANDE HAD GIVEN ORDERS AND RECOMMENDATIONS FOR PT'S MEDS AND MANAGEMENT. V/S STABLE AT THIS TIME. REPORT RELAYED TO STEPHANE DALLAS SHIFT NURSE.
[2019-03-02] MEDS: PANTOPRAZOLE SODIUM 40 MG TABLET.DR PO SCH ×2 (10:21→17:22)
[2019-03-02] MEDS: FAMOTIDINE/PF 20 MG/2 ML VIAL IV SCH ×2 (10:21→19:44)
[2019-03-02] MEDS ORDERED: SODIUM CHLORIDE 0.9% 250 ML IV ONE (10:28)
[2019-03-02] MEDS ORDERED: SODIUM CHLORIDE 0.9% 500ML 500 ML IV ONE (19:37)
[2019-03-02] MEDS: LACTULOSE 20 GM/30 ML UDCUP PO PRN (19:44)
[2019-03-03] MEDS ORDERED: DICYCLOMINE HCL 20 MG TAB ONE (00:10)
[2019-03-03 00:12] VITALS: BP 129/68
[2019-03-03] MEDS ORDERED: DICYCLOMINE HCL 10 MG/ML 2ML AMP IM PRN (00:15)
[2019-03-03] MEDS ORDERED: DICYCLOMINE HCL 20 MG TAB PO PRN (01:30)
[2019-03-03 04:08] VITALS: BP 123/69
[2019-03-03 05:00] LABS: BASOPHILS % (AUTO) 0.7 % (0.0-5.0); EOSINOPHILS % (AUTO) 1.6 % (0.0-8.0); LYMPHOCYTES % (AUTO) 9.5 % (21.0-51.0); MEAN CORPUSCULAR HEMOGLOBIN 34.8 pg (27.0-33.0); MEAN CORPUSCULAR HGB CONC 33.9 g/dL (32.0-36.0); MEAN CORPUSCULAR VOLUME 102.7 fL (79-99); MONOCYTES % (AUTO) 6.1 % (3.0-13.0); NEUTROPHILS % (AUTO) 82.1 % (40.0-77.0); PLATELET COUNT (AUTO) 245 K/uL (130-400); RED BLOOD CELL COUNT(AUTO) 2.14 MIL/uL (4.50-6.20); RED CELL DISTRIBUTION WIDTH 20.4 % (11.0-15.5); WHITE BLOOD COUNT (AUTO) 17.5 K/uL (4.8-10.8)
[2019-03-03 05:09] LABS: INR 2.23 (0.85-1.15); PARTIAL THROMBOPLASTIN TIME 44.8 SEC (26.3-35.5)
[2019-03-03 05:11] LABS: CREATININE 0.8 mg/dL (0.5-1.5); POTASSIUM 3.4 mmol/L (3.5-5.1); TOTAL PROTEIN, SERUM 5.3 g/dL (6.0-8.3)
[2019-03-03] MEDS: POTASSIUM CHLORIDE 20MEQ/100ML 100 ML IV PRN ×4 (05:30→20:42)
[2019-03-03] MEDS: LIDOCAINE HCL-MPF 1% 2ML VIAL IVP PRN ×3 (05:31→15:36)
[2019-03-03 08:00] VITALS: BP 131/68
[2019-03-03] MEDS: SPIRONOLACTONE 25 MG TAB PO SCH (09:58)
[2019-03-03] MEDS: PANTOPRAZOLE SODIUM 40 MG TABLET.DR PO SCH ×2 (09:58→15:35)
[2019-03-03] MEDS: FAMOTIDINE/PF 20 MG/2 ML VIAL IV SCH ×2 (09:58→20:41)
[2019-03-03] MEDS: FUROSEMIDE 40 MG TABLET PO SCH (11:04)
[2019-03-03] MEDS: PHYTONADIONE 10 MG/1 ML AMP IM SCH (11:05)
[2019-03-03 12:00] VITALS: BP 122/56
[2019-03-03] MEDS ORDERED: SODIUM CHLORIDE 0.9% 250 ML IV ONE (15:32)
[2019-03-03 16:00] VITALS: BP 124/70
--- NOTE | 2019-03-03 16:20 | NUR ---
RD Notification - High protein diet Pt with improved appetite, PO intake at 100% at lunch. Pt tolerating High protein diet with no report of GI distress. RD rec to add 60mL ProMod QD. RD to update dietary food recommendations. Pt LBM 03/02/19. Pt monitored labs: Na 135, K 3.4, Ca 7.3, T. Bili 12.0, AST 98, Alk 230, Alb 1.0. RD to continue to monitor. Please notify RD as additional nutrition concerns arise. Thank you. Addendum: 03/03/19 at [address] Amended: Links added.
[2019-03-03 20:00] VITALS: BP 122/76
[2019-03-03] MEDS ORDERED: POTASSIUM CHLORIDE 10% ELIXIR 20 MEQ/15 ML UDCUP PO PRN (20:30)
[2019-03-03] MEDS ORDERED: LIDOCAINE HCL-MPF 1% 2ML VIAL IVP PRN ×2 (20:30→20:45)
[2019-03-03] MEDS ORDERED: POTASSIUM CHLORIDE 20MEQ/100ML 100 ML IV PRN ×2 (20:30→20:45)
[2019-03-03] MEDS ORDERED: POTASSIUM CHLORIDE 20 MEQ ERTAB PO ONE (20:36)
[2019-03-03] MEDS: LACTULOSE 20 GM/30 ML UDCUP PO PRN (20:41)
[2019-03-03] MEDS: POTASSIUM CHLORIDE 20 MEQ ERTAB PO SCH (20:43)
[2019-03-03] MEDS: POTASSIUM CHLORIDE 20 MEQ ERTAB PO PRN (23:10)
[2019-03-04 00:08] VITALS: BP 144/63
[2019-03-04] MEDS: POTASSIUM CHLORIDE 20 MEQ ERTAB PO PRN (00:42)
[2019-03-04 04:00] VITALS: BP 115/64
[2019-03-04 05:33] LABS: HEMATOCRIT 21.9 % (42-54); MEAN CORPUSCULAR HEMOGLOBIN 36.3 pg (27.0-33.0); MEAN CORPUSCULAR VOLUME 103.9 fL (79-99); PLATELET COUNT (AUTO) 225 K/uL (130-400); RED BLOOD CELL COUNT(AUTO) 2.11 MIL/uL (4.50-6.20); RED CELL DISTRIBUTION WIDTH 20.1 % (11.0-15.5)
[2019-03-04 05:49] LABS: BILIRUBIN,TOTAL 12.2 mg/dL (0.2-1.0); CREATININE 0.8 mg/dL (0.5-1.5); POTASSIUM 3.9 mmol/L (3.5-5.1); TOTAL PROTEIN, SERUM 5.3 g/dL (6.0-8.3)
[2019-03-04] MEDS: PANTOPRAZOLE SODIUM 40 MG TABLET.DR PO SCH ×2 (07:30→17:19)
[2019-03-04 08:00] VITALS: BP 116/67
--- NOTE | 2019-03-04 08:35 | NUR ---
PATIENT UPDATE STARTED ON PO HYPOKALEMIA PROTOCOL PER ORDER, COVERED WITH 1 20MEQ KCL IVPB +3 PO 20MEQ KDUR FOR k+ OF 3.1, TOLERATED WELL, LATEST K+ AT 3.9.
[2019-03-04] MEDS: FAMOTIDINE/PF 20 MG/2 ML VIAL IV SCH ×2 (10:20→22:16)
[2019-03-04] MEDS: POTASSIUM CHLORIDE 20 MEQ ERTAB PO SCH ×2 (10:20→22:17)
[2019-03-04] MEDS: PHYTONADIONE 10 MG/1 ML AMP IM SCH (10:20)
[2019-03-04] MEDS: LACTULOSE 20 GM/30 ML UDCUP PO PRN ×2 (10:20→22:29)
[2019-03-04] MEDS: FUROSEMIDE 40 MG TABLET PO SCH (10:21)
[2019-03-04] MEDS: SPIRONOLACTONE 25 MG TAB PO SCH (10:21)
[2019-03-04 12:00] VITALS: BP 125/71
[2019-03-04] MEDS ORDERED: PANT40TA PO (15:30)
[2019-03-04] MEDS ORDERED: SPIR25TA PO (15:30)
[2019-03-04] MEDS ORDERED: LACT PO (15:30)
[2019-03-04] MEDS ORDERED: FURO40TA7 PO (15:30)
[2019-03-04] MEDS ORDERED: CEFD300C3 PO (15:30)
[2019-03-04 16:00] VITALS: BP 125/61
--- NOTE | 2019-03-04 16:00 | NUR ---
CHART AND MD NOTES REVIEWED PROGNOSIS REMAINS VERY GRIM. CM TO FOLLOW Addendum: 03/04/19 at 1900 by MARIETTA REYES RN CM Amended: Links added.
[2019-03-04] MEDS ORDERED: POTASSIUM CHLORIDE 20 MEQ ERTAB PO SCH (17:00)
[2019-03-04] MEDS: CEFTRIAXONE SODIUM 1 GM IVP SCH (17:23)
[2019-03-04 20:00] VITALS: BP 122/67
[2019-03-05] VITALS: BP 115/69
[2019-03-05 04:00] VITALS: BP 110/61
[2019-03-05 04:26] LABS: HEMATOCRIT 22.2 % (42-54); MEAN CORPUSCULAR HEMOGLOBIN 36.4 pg (27.0-33.0); MEAN CORPUSCULAR HGB CONC 34.6 g/dL (32.0-36.0); NUCLEATED RED BLOOD CELLS 0.1 % (0.0-0.19); PLATELET COUNT (AUTO) 221 K/uL (130-400); RED BLOOD CELL COUNT(AUTO) 2.11 MIL/uL (4.50-6.20); RED CELL DISTRIBUTION WIDTH 20.1 % (11.0-15.5); WHITE BLOOD COUNT (AUTO) 16.9 K/uL (4.8-10.8)
[2019-03-05 04:47] LABS: CREATININE 0.7 mg/dL (0.5-1.5); POTASSIUM 3.9 mmol/L (3.5-5.1)
[2019-03-05 08:00] VITALS: BP 118/65
--- NOTE | 2019-03-05 09:00 | NUR ---
DR. BARRIOS VISITED WITH PATIENT. POC DISCUSSED. PATIENT IS STAYING ONE MORE NIGHT PER DR. BARRIOS'S ORDERS.
[2019-03-05] MEDS: LACTULOSE 20 GM/30 ML UDCUP PO PRN (09:01)
[2019-03-05] MEDS: PHYTONADIONE 10 MG/1 ML AMP IM SCH (09:01)
[2019-03-05] MEDS: FUROSEMIDE 40 MG TABLET PO SCH (09:01)
[2019-03-05] MEDS: POTASSIUM CHLORIDE 20 MEQ ERTAB PO SCH ×2 (09:02→22:34)
[2019-03-05] MEDS: SPIRONOLACTONE 25 MG TAB PO SCH (09:02)
[2019-03-05] MEDS: PANTOPRAZOLE SODIUM 40 MG TABLET.DR PO SCH ×2 (09:02→17:05)
[2019-03-05] MEDS: FAMOTIDINE/PF 20 MG/2 ML VIAL IV SCH ×2 (09:02→22:34)
[2019-03-05] MEDS ORDERED: SIME125C81 PO (09:20)
[2019-03-05] MEDS ORDERED: SIMETHICONE 80 MG TAB.CHEW PO PRN (09:45)
[2019-03-05 11:54] VITALS: BP 119/69
[2019-03-05 16:00] VITALS: BP 129/78
[2019-03-05] MEDS: CEFTRIAXONE SODIUM 1 GM IVP SCH (17:05)
[2019-03-05 19:00] VITALS: BP 124/73
[2019-03-05] MEDS ORDERED: DIAZEPAM 5 MG TABLET PO PRN (23:45)
[2019-03-05] MEDS ORDERED: TRAMADOL HCL 50 MG TABLET PO PRN (23:45)
[2019-03-06] MEDS ORDERED: DIAZEPAM 5 MG TABLET ONE (00:04)
[2019-03-06 00:15] VITALS: BP 104/57
--- NOTE | 2019-03-06 03:45 | NUR ---
REFUSED AM VITALS PATIENT REFUSED AM VITALS. MELONIE GUZMAN AWARE.
[2019-03-06 06:02] LABS: HEMATOCRIT 21.4 % (42-54); MEAN CORPUSCULAR HEMOGLOBIN 35.4 pg (27.0-33.0); MEAN CORPUSCULAR HGB CONC 33.9 g/dL (32.0-36.0); MEAN CORPUSCULAR VOLUME 104.4 fL (79-99); NUCLEATED RED BLOOD CELLS 0.1 % (0.0-0.19); PLATELET COUNT (AUTO) 237 K/uL (130-400); RED BLOOD CELL COUNT(AUTO) 2.05 MIL/uL (4.50-6.20); RED CELL DISTRIBUTION WIDTH 19.7 % (11.0-15.5); WHITE BLOOD COUNT (AUTO) 16.9 K/uL (4.8-10.8)
[2019-03-06 06:14] LABS: CREATININE 0.6 mg/dL (0.5-1.5); POTASSIUM 3.8 mmol/L (3.5-5.1)
[2019-03-06 06:17] LABS: BAND NEUTROPHILS % (MANUAL) 3 % (0-2); BASOPHILS % (MANUAL) 1 % (0-2); EOSINOPHILS % (MANUAL) 1 % (1-6); LYMPHOCYTES % (MANUAL) 4 % (22-44); MAN.DIFF COMMENT-IMPRESSION MANUAL DIFFERENTIAL; MONOCYTES % (MANUAL) 8 % (2-9); SEGMENTED NEUTROPHILS % 83 % (40-70)
[2019-03-06] MEDS: PANTOPRAZOLE SODIUM 40 MG TABLET.DR PO SCH ×2 (07:13→15:53)
[2019-03-06 07:22] VITALS: BP 117/67
--- NOTE | 2019-03-06 08:30 | NUR ---
NOTE AAOX3. DENIES PAIN OR SOB. BBS CLEAR. NO CHEST PAIN. NO N/V OR OTHER GI PROBLEMS VOICED. VISIBLY NOTED ENLARGED ABDOMEN AND JAUNDICE. HE IS A RECENTLY DIAGNOSED CIRRHOSIS PATIENT. BLE 3+ PITTING EDEMA. DENIES ANY BLOOD IN URINE, STOOL OR VOMITING BLOOD. HE WAS STARTED ON DIURETICS AND HE HAS BEEN TAKING LACTULOSE.
[2019-03-06] MEDS: POTASSIUM CHLORIDE 20 MEQ ERTAB PO SCH ×2 (09:55→22:01)
[2019-03-06] MEDS: FUROSEMIDE 40 MG TABLET PO SCH (10:10)
[2019-03-06] MEDS: SPIRONOLACTONE 25 MG TAB PO SCH (10:14)
[2019-03-06] MEDS: FAMOTIDINE/PF 20 MG/2 ML VIAL IV SCH ×2 (10:14→22:01)
[2019-03-06 11:00] VITALS: BP 124/66
[2019-03-06] MEDS: CEFTRIAXONE SODIUM 1 GM IVP SCH (15:53)
[2019-03-06 16:00] VITALS: BP 120/53
[2019-03-06] MEDS: LACTULOSE 20 GM/30 ML UDCUP PO PRN (18:40)
--- NOTE | 2019-03-06 18:45 | NUR ---
PATIENT REQUESTING LACTULOSE FOR BOWEL MOVEMENT INDUCTION. STATES HE IS CONCERNED TO HAVE A FORCED BOWEL MOVEMENT DUE TO RECTAL DISCOMFORT. ENCOURAGED TO AMBULATE TOLERATED TO PROMOTE PERISTALSIS. VERBALIZES UNDERSTANDING.
[2019-03-06 19:12] VITALS: BP 113/61
--- NOTE | 2019-03-06 23:05 | NUR ---
MD MARCELO BARRIOS MD SPOKE WITH THE PATIENT ABOUT POSSIBLE DISCHARGE TOMORROW. MD IS GOING TO INQUIRE ABOUT A MAURIZIO DR TO SEE THE PATIENT OUT OF HOSPITAL. A LIST OF MEDICATIONS THAT THE PATIENT WILL NEED TO TAKE UPON DISCHARGE WERE DISCUSSED WITH THE PATIENT. PATIENT REPORTS SLIGHT DISCOMFORT ON HIS ABDOMEN WHEN CHANGING POSITIONS, NO OTHER PAIN WAS REPORTED. PATIENT AGREES WITH PLAN, NO OTHER QUESTIONS ASKED AT THIS TIME.
[2019-03-07 00:12] VITALS: BP 125/64
[2019-03-07 04:00] VITALS: BP 115/59
[2019-03-07] MEDS: PANTOPRAZOLE SODIUM 40 MG TABLET.DR PO SCH (06:22)
[2019-03-07 06:48] LABS: % IRON SATURATION 40.2 % (30-44)
[2019-03-07 07:30] VITALS: BP 118/67
[2019-03-07] MEDS: SPIRONOLACTONE 25 MG TAB PO SCH (10:10)
[2019-03-07] MEDS: POTASSIUM CHLORIDE 20 MEQ ERTAB PO SCH (10:11)
[2019-03-07] MEDS: FUROSEMIDE 40 MG TABLET PO SCH (10:11)
[2019-03-07] MEDS: FAMOTIDINE/PF 20 MG/2 ML VIAL IV SCH (10:11)
[2019-03-07 11:00] VITALS: BP 123/80
--- NOTE | 2019-03-07 13:00 | NUR ---
RX COUPON DISCOUNT CARDS GIVEN AT DISCHARGE Addendum: 03/07/19 at 1916 by MARIETTA REYES RN CM Amended: Links added.
[2019-03-07 16:00] VITALS: BP 105/66
== END 2019-03-07 18:55 | disposition home or self-care (01) | DRG 432 ==
LOC: EDH 08:36 → EDHIP 08:37 → 3AH 12:50
PROVIDERS: ADMIT Internal Medicine; ATTEND Internal Medicine
PROC: 30233K1 Transfusion of Nonautologous Frozen Plasma into Peripheral Vein, Percutaneous Approach (ICD-10-PCS; principal; 2019-03-01)
PROC: 30233N1 Transfusion of Nonautologous Red Blood Cells into Peripheral Vein, Percutaneous Approach (ICD-10-PCS; 2019-03-02)
PROC: 0DJD8ZZ Inspection of Lower Intestinal Tract, Via Natural or Artificial Opening Endoscopic (ICD-10-PCS; 2019-03-02)
PROC: 0DJ08ZZ Inspection of Upper Intestinal Tract, Via Natural or Artificial Opening Endoscopic (ICD-10-PCS; 2019-03-02)
DX: K70.31 Alcoholic cirrhosis of liver with ascites (principal); E43 Unspecified severe protein-calorie malnutrition; K65.2 Spontaneous bacterial peritonitis; K76.6 Portal hypertension; D68.4 Acquired coagulation factor deficiency; K92.1 Melena; K70.11 Alcoholic hepatitis with ascites; E11.9 Type 2 diabetes mellitus without complications; D64.9 Anemia, unspecified; E87.6 Hypokalemia; F10.20 Alcohol dependence, uncomplicated; I10 Essential (primary) hypertension; K63.89 Other specified diseases of intestine; K31.89 Other diseases of stomach and duodenum; R62.7 Adult failure to thrive; Y90.9 Presence of alcohol in blood, level not specified; Z79.899 Other long term (current) drug therapy; Z83.2 Family history of diseases of the blood and blood-forming organs and certain disorders involving the immune mechanism; Z83.3 Family history of diabetes mellitus; Z82.49 Family history of ischemic heart disease and other diseases of the circulatory system; Z68.34 Body mass index [BMI] 34.0-34.9, adult
CPT/HCPCS: 36415; 36430; 43235; 45378; 76705; 80048; 80053; 80076; 81001; 82140; 82270; 82948; 83540; 83550; 83690; 84132; 85025; 85027; 85610; 85730; 86850; 86900; 86901; 86922; 86927; C9113; G0378; J0696; J1940; J2370; J2704; J3430; J3480; J3490; J7030; J7040; P9016; P9017